=== PATIENT | female | born 1970 | race Caucasian/White ===

== ENCOUNTER 2023-09-30 12:00 | Emergency (ER) | payer OTHER, SELFPAY ==
[2023-09-30 12:02] VITALS: BP 150/84
--- NOTE | 2023-09-30 12:16 | ED.GENMED ---
History of Present Illness
<Cate Solomon NP - Last Filed: 09/30/23 19:25>
General
Chief Complaint: Headache
Source: patient
Exam Limitations: none
Time Seen by Provider: 09/30/23 12:06
Nursing documentation reviewed up to this point in time: agreed with
History of Present Illness
History of Present Illness:
Patient to ED with complaint of right facial paralysis. States she has had a severe posterior headache x 1 week. Taking excedrin wth some improvement in pain level. Today noted facial paralysis. No extremity weakness. Denies fever/chills, n/v/d,
skin rash. No recent illness. Brought self to ED for eval.
Past History
<Cate Solomon NP - Last Filed: 09/30/23 19:25>
Past History
ED Past Medical History: Cancer (Breast), GERD and Psychiatric
ED Past Surgical History: Appendectomy, Bowel resection, Gynecological (Partial Hysterectomy. Leep procedure. ), Orthopedic (Right arm fracture with surgery) and Other (Bilateral mastectomy)
Social History
Tobacco: Former smoker
Alcohol: Occasional
Personal:
Living: alone
Review of Systems
<Cate Solomon NP - Last Filed: 09/30/23 19:25>
Review of Systems
Allergies reviewed?: Yes
All Other Systems: ROS reviewed and negative except as documented in HPI and ROS
Constitutional: Reports no symptoms
EENT: Reports no symptoms
Respiratory: Reports no symptoms
Cardiac: Reports no symptoms
ABD/GI: Reports no symptoms
: Reports no symptoms
Musculoskeletal: Reports no symptoms
Skin: Reports no symptoms
Neurological: Reports other (right facial paralysis)
Psychiatric: Reports no symptoms
Phy Exam
<Cate Solomon NP - Last Filed: 09/30/23 19:25>
General Physical Exam
General Presentation: well appearing
General age: appears stated age
General Skin: warm and dry
General Habitus: normal
Cardiovascular Exam
Cardiovascular Exam: regular rate/rhythm and no edema
Pulmonary Exam
Pulmonary Exam: lungs clear and no respiratory distress
Neurological Exam
Neurological Exam: alert, oriented x3, speech normal, normal gait and other (right facial paralysis)
NIH Stroke Score
Level of Consciousness: 0 - Alert
LOC questions: 0-Answers both correctly
LOC Commands: 0-Performs both correctly
Best Gaze: 0-Normal
Visual Hernandez: 0=Normal, no visual loss
Facial palsy: 2=Partial paralysis (right facial paralysis)
Motor - Right Arm: 0=No drift 10 seconds
Motor - Left Arm: 0=No drift 10 seconds
Motor - Right Le-No drift 5 seconds
Motor - Left Le-No drift 5 seconds
Limb Ataxia: 0-Absent
Sensation: 0-Normal
Best Language: 0-No aphasia
Dysarthria: 0-Normal
Extinction and Inattention: 0-No abnormality
Total Score:: 2
Musculoskeletal Exam
Musculoskeletal Exam: full ROM and neuro vasc intact
Skin Exam
Skin Exam: normal color, warm/dry and no rash
Psychiatric Exam
Psychiatric Exam: normal mood/affect
<Max Mcknight DO - Last Filed: 09/30/23 13:26>
NIH Stroke Score
Total Score:: 2
Course
<Cate Solomon DAYCARE TEACHER - Last Filed: 09/30/23 19:25>
Orders/Labs/Results
Orders:
Orders
09/30/23 12:15
CT Head W/o Iv Contrast Urgent
Comment:
Reason For Exam: right facial paralysis severe lora
09/30/23 12:49
Complete Blood Count/With Diff Urgent
Comprehensive Metabolic Panel Urgent
Lyme Progressive Urgent
09/30/23 12:59
Ketorolac [Toradol] 30 mg IV NOW STA
09/30/23 13:10
Prednisone [Deltasone] 50 mg PO NOW STA
09/30/23 13:14
Urinalysis Reflex To Culture Urgent
Date Specimen was Collected: 09/30/23
Time Specimen was Collected: 12:59
09/30/23 13:19
Doxycycline [Vibramycin] 100 mg PO NOW STA
09/30/23 13:36
Famciclovir [Famvir] 500 mg PO NOW STA
09/30/23 14:42
Morphine Sulfate 4 mg IV NOW STA
Ondansetron Injectable [Zofran] 4 mg IV NOW STA
Abnormal Lab Results
09/30/23
12:49
RBC 3.85 L 10^6/uL
(4.20-5.40)
Hgb 11.3 L g/dL
(12.0-16.0)
Hct 32.4 L %
(37.0-47.0)
MPV 10.5 H fL
(7.4-10.4)
Absolute Lymphs (auto) 1.1 L 10^3/uL
(1.2-3.4)
Lymphocytes % 20.1 L %
(20.5-51.1)
Monocytes % 9.4 H %
(1.7-9.3)
Glucose 110 H mg/dl
(70-99)
AST 46 H U/L
(14-36)
ALT 50 H U/L
(0-35)
09/30/23 12:49
09/30/23 12:49
Vital Signs
Initial and Last Documented VS:
Initial Vital Signs
Temp Pulse Resp BP Pulse Ox
98.9 F 99 18 150/84 98
09/30/23 12:02 09/30/23 12:02 09/30/23 12:02 09/30/23 12:02 09/30/23 12:02
Last Documented Vital Signs
Temp Pulse Resp BP Pulse Ox
98.9 F 99 18 150/84 98
09/30/23 12:02 09/30/23 12:02 09/30/23 12:02 09/30/23 12:02 09/30/23 12:02
<Max Mcknight, DO - Last Filed: 09/30/23 13:26>
Orders/Labs/Results
Orders:
Orders
09/30/23 12:15
CT Head W/o Iv Contrast Urgent
Comment:
Reason For Exam: right facial paralysis severe lora
09/30/23 12:49
Complete Blood Count/With Diff Urgent
Comprehensive Metabolic Panel Urgent
Lyme Progressive Urgent
09/30/23 12:59
Ketorolac [Toradol] 30 mg IV NOW STA
09/30/23 13:10
Prednisone [Deltasone] 50 mg PO NOW STA
09/30/23 13:14
Urinalysis Reflex To Culture Urgent
Date Specimen was Collected: 09/30/23
Time Specimen was Collected: 12:59
09/30/23 13:19
Doxycycline [Vibramycin] 100 mg PO NOW STA
09/30/23 13:36
Famciclovir [Famvir] 500 mg PO NOW STA
09/30/23 14:42
Morphine Sulfate 4 mg IV NOW STA
Ondansetron Injectable [Zofran] 4 mg IV NOW STA
Abnormal Lab Results
09/30/23
12:49
RBC 3.85 L 10^6/uL
(4.20-5.40)
Hgb 11.3 L g/dL
(12.0-16.0)
Hct 32.4 L %
(37.0-47.0)
MPV 10.5 H fL
(7.4-10.4)
Absolute Lymphs (auto) 1.1 L 10^3/uL
(1.2-3.4)
Lymphocytes % 20.1 L %
(20.5-51.1)
Monocytes % 9.4 H %
(1.7-9.3)
Glucose 110 H mg/dl
(70-99)
AST 46 H U/L
(14-36)
ALT 50 H U/L
(0-35)
09/30/23 12:49
09/30/23 12:49
Vital Signs
Initial and Last Documented VS:
Initial Vital Signs
Temp Pulse Resp BP Pulse Ox
98.9 F 99 18 150/84 98
09/30/23 12:02 09/30/23 12:02 09/30/23 12:02 09/30/23 12:02 09/30/23 12:02
Last Documented Vital Signs
Temp Pulse Resp BP Pulse Ox
98.9 F 99 18 150/84 98
09/30/23 12:02 09/30/23 12:02 09/30/23 12:02 09/30/23 12:02 09/30/23 12:02
<Cate Solomon NP - Last Filed: 09/30/23 19:25>
*Radiology
Radiology exam reviewed: radiology read reviewed
*Pulse Oximetry
Patient hypoxic: no
*Critical Care Note
Total Time (30-74mins, 75-104mins- exclusive of procedures): Not Applicable
<Cate Solomon NP - Last Filed: 09/30/23 19:25>
Update Note
Update Note:
Patient to ED wtih headache and right facial paralysis. CT of head neg. Labs without concerning findings. Stroke scale 2. Symptoms consistent with bells palsy. WIll treat with prednisone, doxy (for lyme), famvir (herpes). SHe is discharged
home and will follow closely with PCP. Given instructions on s/s to return to ED and she is agreeable to plan. Case discussed with Dr. Mcknight who agrees with findings and plan.
ED Attending Note
<Cate Solomon DAYCARE TEACHER - Last Filed: 09/30/23 19:25>
-
Portions of this chart may have been created with voice recognition software.� Occasional wrong word or��sound alike� substitutions may have occurred due to the inherent limitations of voice recognition software.
<Max Mcknight DO - Last Filed: 09/30/23 13:26>
ED Attending Note
Patient seen and examined by attending physician: Yes
I performed the substantive portion of visit, reviewed & personally made and approve the management plan that is documented in note by myself or GRUPO.: Yes
ED Attending Note:
I have seen and evaluated the patient with a [id number] encounter. I have spoken to the advance practicer provider and involved in the medical history, the physical exam, medical decision making.
Evaluation and management service: agree unless noted differently below.
Results interpretation: agree unless noted differently below.
Focused HPI: 52-year-old female presenting with right facial paralysis. Patient woke up at 9 AM and noted the symptoms. She did have a drink of water in the middle the night and noted that she spilling her water. This was preceded by headache
over the past week. Patient states she is having trouble closing her right eye.
Physical exam: Right facial paralysis. It does involve the right forehead. It is not completely paralyzed. She is able to close the right eye but the blink is very slow. No other focal deficits
Medical Decision Making: CT head negative. 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 Will start steroids and antivirals. Given that she is an avid hiker, will start Doxy with Lyme's testing pending
Discharge Plan
Departure
Patient Disposition: Home (Routine Discharge)
Date of Disposition: 09/30/23
Time of Disposition: 15:21
Patient with high blood pressure during this ER visit?: No
Condition: Good
Covid-19: Not Applicable
Discharge Problem:
Cast's palsy
Instructions: Cast's palsy
Prescriptions:
New
doxycycline hyclate 100 mg tablet
100 mg PO BID Qty: 20 0RF
famciclovir 500 mg tablet
500 mg PO BID 7 Days Qty: 14 0RF
prednisone 10 mg Tablet
See Rx Instructions .ROUTE .COMPLEX Qty: 45 0RF
Rx Instructions:
Take By Mouth:
50 mg daily x3 days, 40 mg daily x3 days,
30 mg daily x3 days, 20 mg daily x3 days,
10 mg daily x3 days
No Action
prednisone 20 mg Tablet
40 mg PO DAILY 5 Days Qty: 10 0RF
Rx Instructions:
First day is October 29, 2022
ibuprofen 800 mg Tablet
See Rx Instructions .ROUTE .COMPLEX Qty: 21 0RF
Rx Instructions:
800 mg orally once every 12 hours (or every 8 hours if needed)
pantoprazole 40 mg Tablet,Delayed Release (Dr/Ec)
40 mg PO DAILY Qty: 14 0RF
Referrals:
Abdiaziz Jameson, DO [Family Provider] - Tomorrow
Activity Restrictions/Additional Instructions:
Return to the emergency department immediately for any changes in/worsening of your symptoms
Interventions
Interventions:
*Risk Screen - Suicide Last Done: 09/30/23 12:02
*General Assessment Last Done: 09/30/23 12:02
*Neglect/Abuse Screening Last Done: 09/30/23 12:02
ED- Fall Risk Assessment Last Done: 09/30/23 12:51
*ED COVID-19 Vaccine History Last Done: 09/30/23 12:39
*Nursing Disposition Last Done: 09/30/23 16:01
ED- Neurological Assessment Last Done: 09/30/23 12:51
Discharge Date and Time
Discharge Date/Time: 09/30/23 16:05
Print Language: THAI
[2023-09-30 12:38] VITALS: BMI 27.9
[2023-09-30 13:06] LABS: % Basophils 0.7 % (0-2); % Eosinophils 0.9 % (0-6); % Immature Granulocytes 0.2 % (0-0.5); % Lymphocytes 20.1 % (20.5-51.1); % Monocytes 9.4 % (1.7-9.3); % Neutrophils 68.7 % (42.2-75.2); Absolute Eosinophils 0.1 10^3/uL (0-0.7); Absolute Lymphocytes 1.1 10^3/uL (1.2-3.4); Absolute Monocytes 0.5 10^3/uL (0.1-0.6); Absolute Neutrophils 3.8 10^3/uL (1.4-6.5); Hematocrit 32.4 % (37.0-47.0); Hemoglobin 11.3 g/dL (12.0-16.0); Mean Corp Hgb Conc. 34.9 g/dL (33.0-37.0); Mean Corpuscular Hgb 29.4 pg (27.0-31.0); Mean Corpuscular Volume 84.2 fL (81.0-99.0); Mean Platelet Volume 10.5 fL (7.4-10.4); Nucleated Red Blood Cells % 0 %; Platelet Count 186 10^3/uL (130-400); Red Blood Cell Count 3.85 10^6/uL (4.20-5.40); Red Cell Dist. Width 12.2 % (11.5-14.5); White Blood Cell Count 5.6 10^3/uL (4.8-10.8)
[2023-09-30] MEDS: TORADOL 30 MG IV (13:14)
[2023-09-30 13:25] LABS: ALT (SGPT) 50 U/L (0-35); AST (SGOT) 46 U/L (14-36); Albumin 3.9 g/dl (3.5-5.0); Alkaline Phosphatase 80 U/L (38-126); Blood Urea Nitrogen 10 mg/dl (7-17); Calcium 9.4 mg/dl (8.4-10.2); Carbon Dioxide 25 mmol/L (22-30); Chloride 105 mmol/L (98-107); Estimated Creatinine Clearance 123 ml/min; Glucose 110 mg/dl (70-99); Potassium 3.7 mmol/L (3.5-5.1); Sodium 139 mmol/L (135-145); Total Bilirubin 0.5 mg/dl (0.2-1.3); Total Protein 6.7 g/dl (6.3-8.2); eGFR > 60.00
[2023-09-30 13:32] LABS: Urine Albumin Negative (Neg - Trace); Urine Bilirubin Negative (Negative); Urine Character Clear (Clear); Urine Color Yellow; Urine Glucose Negative (Negative); Urine Ketone Negative (Negative); Urine Leukocyte Negative (Negative); Urine Nitrite Negative (Negative); Urine Occult Blood Negative (Negative); Urine Urobilinogen Negative (Neg - 1+)
[2023-09-30] MEDS: VIBRAMYCIN 100 MG PO (13:45)
[2023-09-30] MEDS: FAMVIR 500 MG PO (13:45)
[2023-09-30] MEDS: DELTASONE 50 MG PO (13:45)
[2023-09-30] MEDS: ZOFRAN 4 MG IV (14:49)
[2023-09-30] MEDS: MORPHINE SULFATE 4 MG IV (14:49)
[2023-10-02 13:47] LABS: Lyme Antibody Screen, EIA Negative (Negative)
== END 2023-09-30 16:05 | disposition home or self-care (01) ==
LOC: EMR 12:00
PROVIDERS: Nurse Practitioner; EMERGENCY PHYSICIAN Student in an Organized Health Care Education/Training Program; FAMILY PHYSICIAN Family Medicine
DX: G51.0 Bell's palsy (principal); Z87.891 Personal history of nicotine dependence
CPT/HCPCS: 99284; 96374; 96375 ×2; 70450; 80053; 81003; 85025; 86618

== ENCOUNTER → 2025-03-02 13:15 | Outpatient (REF) | payer OTHER, SELFPAY | LOC: PAVMRI 13:15 | PROVIDERS: ATTENDING PHYSICIAN Registered Nurse; FAMILY PHYSICIAN Physician Assistant Medical | DX: Z15.01 Genetic susceptibility to malignant neoplasm of breast (principal); Z15.09 Genetic susceptibility to other malignant neoplasm; Z15.89 Genetic susceptibility to other disease; Z91.89 Other specified personal risk factors, not elsewhere classified | CPT/HCPCS: 74183 ==